=== PATIENT | female | born 1950 | race Caucasian/White ===

== ENCOUNTER 2018-01-08 06:12 | Day surgery (SDC) | payer BC ==
[~2018-01-08 06:12] MED LIST: ACETAMINOPHEN 325 MG TAB PO
[2018-01-08] MEDS: PROPARACAINE 0.5% OPHTH SOL 15ML OS (06:57)
[2018-01-08] MEDS: PHENYLEPHRINE 2.5% OPHTH SOL 2ML OS (06:57)
[2018-01-08] MEDS: OFLOXACIN 0.3 % (OCUFLOX) OPTH SOL 5ML OS (06:57)
[2018-01-08] MEDS: TROPICAMIDE 1% OPHTH SOLN 2ML OS (06:57)
[2018-01-08] MEDS ORDERED: fentaNYL 100 MCG/2 ML INJECTION (J3010) As Ordered (07:05)
[2018-01-08] MEDS ORDERED: MIDAZOLAM INJ 2 MG/2 ML VIAL (J2250) As Ordered (07:05)
[2018-01-08] MEDS: POVIDONE-IODINE 5% OPHTH PREP SOL 30ML As Ordered (07:47)
[2018-01-08] MEDS: DUOVISC (0.50ML VISCOAT/0.55ML PROVISC) OPHTH KIT As Ordered (08:02)
[2018-01-08] MEDS: BALANCED SALT IRRIGATION SOLUTION 500ML BAG (FOR OR EYE MACHINE) As Ordered (08:02)
[2018-01-08] MEDS: LIDOCAINE 0.75%/EPINEPHRINE 0.025% IN BSS 1ML SYR INTRACAMERAL (OR ONLY) As Ordered (08:02)
[2018-01-08] MEDS ORDERED: TRIMETHOBENZAMIDE 300 MG CAP PO (08:45)
== END 2018-01-08 09:05 | disposition home or self-care (01) ==
LOC: M SDC 06:12
DX: H25.12 Age-related nuclear cataract, left eye (principal); I10 Essential (primary) hypertension; E03.9 Hypothyroidism, unspecified; K44.9 Diaphragmatic hernia without obstruction or gangrene; I73.00 Raynaud's syndrome without gangrene; M12.9 Arthropathy, unspecified; M54.5 Low back pain; G35 Multiple sclerosis; N39.3 Stress incontinence (female) (male); F12.90 Cannabis use, unspecified, uncomplicated; Z88.0 Allergy status to penicillin; Z79.899 Other long term (current) drug therapy; Z79.82 Long term (current) use of aspirin; Z98.51 Tubal ligation status; Z78.0 Asymptomatic menopausal state; Z87.891 Personal history of nicotine dependence
CPT/HCPCS: 66984

== ENCOUNTER 2018-01-22 07:49 | Day surgery (SDC) | payer BC ==
[~2018-01-22 07:49] MED LIST changes: -ACETAMINOPHEN 325 MG TAB PO; +MIDAZOLAM INJ 2 MG/2 ML VIAL (J2250) As Ordered; +fentaNYL 100 MCG/2 ML INJECTION (J3010) As Ordered
[2018-01-22] MEDS: TROPICAMIDE 1% OPHTH SOLN 2ML OD (08:53)
[2018-01-22] MEDS: OFLOXACIN 0.3 % (OCUFLOX) OPTH SOL 5ML OD (08:53)
[2018-01-22] MEDS: PROPARACAINE 0.5% OPHTH SOL 15ML OD (08:53)
[2018-01-22] MEDS: PHENYLEPHRINE 2.5% OPHTH SOL 2ML OD (08:53)
[2018-01-22] MEDS: POVIDONE-IODINE 5% OPHTH PREP SOL 30ML As Ordered (09:58)
[2018-01-22] MEDS: BALANCED SALT IRRIGATION SOLUTION 500ML BAG (FOR OR EYE MACHINE) As Ordered (10:02)
[2018-01-22] MEDS: LIDOCAINE 0.75%/EPINEPHRINE 0.025% IN BSS 1ML SYR INTRACAMERAL (OR ONLY) As Ordered (10:02)
[2018-01-22] MEDS: DUOVISC (0.50ML VISCOAT/0.55ML PROVISC) OPHTH KIT As Ordered (10:06)
[2018-01-22] MEDS ORDERED: ACETAMINOPHEN 325 MG TAB As Ordered (10:19)
[2018-01-22] MEDS: ACETAMINOPHEN 325 MG TAB PO (10:25)
[2018-01-22] MEDS ORDERED: TRIMETHOBENZAMIDE 300 MG CAP PO (10:30)
== END 2018-01-22 11:28 | disposition home or self-care (01) ==
LOC: M SDC 07:49
DX: H25.11 Age-related nuclear cataract, right eye (principal); I10 Essential (primary) hypertension; G35 Multiple sclerosis; E03.9 Hypothyroidism, unspecified; K58.8 Other irritable bowel syndrome; Z87.891 Personal history of nicotine dependence; Z79.82 Long term (current) use of aspirin; Z79.899 Other long term (current) drug therapy
CPT/HCPCS: 66984

== ENCOUNTER → 2019-08-26 | Outpatient (CLI) | payer BC ==
[~2019-08-26] MED LIST changes: +ACET-841 PO; +ALKATAB12 PO; +ASPI81TA26 PO; +BUSP5TA PO; +CAND8TAB PO; +CANNABIS SL; +CBD OIL PO; +CETI10CH PO; +COPA1INJ SC; +CYAN500T8 PO; +EPIN1DRO OU; +ESTR0.1C5 EXT; +FLUO10CA15 PO; +LEVO137T2 PO; -MIDAZOLAM INJ 2 MG/2 ML VIAL (J2250) As Ordered; +MIST; +MULTCAP PO; +MULTICOLLAGEN PO; +OMEP40CA97 PO; +PROBCAP14 PO; +PROT0.1O EX; +PSEU30TA85 PO; +SALI0.6528; +SIME180C PO; +SYST1SOL OU; +TECF240C PO; +TRIA1PST TOP; +VENTAER INH; +VITAD1000T PO; -fentaNYL 100 MCG/2 ML INJECTION (J3010) As Ordered; +lutein PO; +primrose oil PO
== END ==
LOC: M LABSMTC 11:42
PROVIDERS: ATTEND Anesthesiology
DX: Z03.818 Encounter for observation for suspected exposure to other biological agents ruled out (principal); Z11.59 Encounter for screening for other viral diseases
CPT/HCPCS: C9803; U0003

== ENCOUNTER 2019-08-30 10:45 | Day surgery (SDC) | payer BC ==
[~2019-08-30] VITALS: Ht 154.9 cm; Wt 65.5 kg
[~2019-08-30 10:45] MED LIST changes: +D31000TA2 PO; -FLUO10CA15 PO; +FLUO10CA16 PO; +NS 1,000 ML IV ONE; -VITAD1000T PO
[2019-08-30] MEDS ORDERED: fentaNYL 100 MCG/2 ML INJECTION (J3010) As Ordered ONE (11:54)
[2019-08-30] MEDS ORDERED: LIDOCAINE 2% 100MG/5ML SDV (FOR ANES.) As Ordered ONE (11:56)
[2019-08-30] MEDS ORDERED: propofoL 200 MG/20 ML VIAL As Ordered ONE (11:59)
--- NOTE | 2019-08-30 12:43 | ROOR ---
Patient Name: Irma Ivory Procedure Date: 08/30/2019 12:25 PM Date of : 1950 Age: 68 Room: [facility] Gender: Female Note Status: Finalized Procedure: Upper Endoscopy + Biopsies Indications: Heartburn, Exclusion of Adrian's esophagus Providers: Castro Hooper MD Referring MD: WESTLEY WEST DO Requesting Provider: Medicines: Monitored Anesthesia Care Complications: No immediate complications. Procedure: Pre-Anesthesia Assessment: - The heart rate, respiratory rate, oxygen saturations, blood pressure, adequacy of pulmonary ventilation, and response to care were monitored throughout the procedure. The Endoscope was introduced through the mouth, and advanced to the second part of duodenum. The upper GI endoscopy was accomplished without difficulty. The patient tolerated the procedure well. Findings: The Z-line was regular and was found 35 cm from the incisors. Multiple biopsies were obtained with cold forceps for evaluation to rule out Adrian's Esophagus randomly at the gastroesophageal junction. A small hiatal hernia was present. No other significant abnormalities were identified in a careful examination of the stomach. The exam of the duodenum was otherwise normal. Impression: - Z-line regular, 35 cm from the incisors. - Small hiatal hernia. - Multiple biopsies were obtained at the gastroesophageal junction. - The examination was otherwise normal. Recommendation: - Patient has a contact number available for emergencies. The signs and symptoms of potential delayed complications were discussed with the patient. Return to normal activities tomorrow. Written discharge instructions were provided to the patient. - Resume previous diet. - Discharge patient to home. - Follow an antireflux regimen. - Continue present medications. - Await pathology results. - Telephone GI clinic for pathology results in 1 week. - Return to referring physician. - The findings and recommendations were discussed with the patient. Castro Hooper MD Castro Hooper MD 08/30/2019 12:42:44 PM Electronically signed by Castro Hooper MD Number of Addenda: 0 Note Initiated On: 08/30/2019 12:25 PM Estimated Blood Loss: Estimated blood loss: none.
[2019-08-30] MEDS ORDERED: ePHEDrine SULFATE 25 MG/5 ML(5MG/ML) SYRINGE As Ordered ONE (13:00)
--- NOTE | 2019-08-30 13:09 | ROOR ---
Patient Name: Irma Ivory Procedure Date: 08/30/2019 12:25 PM Date of : 1950 Age: 68 Room: [facility] Gender: Female Note Status: Finalized Procedure: Total Colonoscopy to Cecum Indications: Positive Cologuard test Providers: Castro Hooper MD Referring MD: WESTLEY WEST DO Requesting Provider: Medicines: Monitored Anesthesia Care Complications: No immediate complications. Procedure: Pre-Anesthesia Assessment: - The heart rate, respiratory rate, oxygen saturations, blood pressure, adequacy of pulmonary ventilation, and response to care were monitored throughout the procedure. The Colonoscope was introduced through the anus and advanced to the cecum, identified by appendiceal orifice and ileocecal valve. The colonoscopy was performed without difficulty. The patient tolerated the procedure well. The quality of the bowel preparation was excellent. Findings: The perianal and digital rectal examinations were normal. Non-bleeding internal hemorrhoids were found during retroflexion. The hemorrhoids were medium-sized and Grade II (internal hemorrhoids that prolapse but reduce spontaneously). No other significant abnormalities were identified in a careful examination of the remainder of the colon. The exam was otherwise without abnormality. Impression: - Non-bleeding internal hemorrhoids. - The examination was otherwise normal. - No specimens collected. - The exam was otherwise normal to the cecum. Recommendation: - Patient has a contact number available for emergencies. The signs and symptoms of potential delayed complications were discussed with the patient. Return to normal activities tomorrow. Written discharge instructions were provided to the patient. - Resume previous diet. - Discharge patient to home. - Continue present medications. - Repeat colonoscopy for symptoms only. - Return to referring physician. - The findings and recommendations were discussed with the patient. Castro Hooper MD Castro Hooper MD 08/30/2019 1:08:47 PM Electronically signed by Castro Hooper MD Number of Addenda: 0 Note Initiated On: 08/30/2019 12:25 PM Estimated Blood Loss: Estimated blood loss: none.
[2019-08-30 13:30] VITALS: BP 148/70
== END 2019-08-30 13:49 | disposition home or self-care (01) ==
LOC: M OPP 10:45
PROVIDERS: ATTEND Internal Medicine Gastroenterology
DX: K64.1 Second degree hemorrhoids (principal); R19.5 Other fecal abnormalities; R12 Heartburn; K44.9 Diaphragmatic hernia without obstruction or gangrene; E03.9 Hypothyroidism, unspecified; I10 Essential (primary) hypertension; G35 Multiple sclerosis; Z79.82 Long term (current) use of aspirin; Z79.899 Other long term (current) drug therapy; Z88.0 Allergy status to penicillin; Z88.8 Allergy status to other drugs, medicaments and biological substances; Z91.048 Other nonmedicinal substance allergy status
CPT/HCPCS: 43239; 45378; 88305; J3010

== ENCOUNTER → 2021-11-30 | Outpatient (CLI) | payer BC ==
[~2021-11-30] MED LIST changes: -CAND8TAB PO; +CAND8TAB8 PO; +CYAN500T14 PO; -CYAN500T8 PO; -D31000TA2 PO; -FLUO10CA16 PO; +FLUO10CA18 PO; -NS 1,000 ML IV ONE; +OMEP40CA4 PO; -OMEP40CA97 PO; +PROHANCE 279.3MG/ML 15ML VIAL ONE; -PSEU30TA85 PO; +PSEU30TA86 PO; -SIME180C PO; +SIME180C25 PO; +VITA100093 PO
== END ==
LOC: M PLAIMG 14:20
PROVIDERS: ATTEND Physician Assistant Medical
DX: G35 Multiple sclerosis (principal)

== ENCOUNTER → 2023-09-25 | Outpatient (CLI) | payer BC ==
[~2023-09-25] MED LIST changes: +ATOR40TA75; +CALC1CAP PO; +CYCL1CAP2 PO; +DILT120C89; +ESCITALOPRAM; +FLUO-290 PO; -FLUO10CA18 PO; +LIDOCAINE 1% MDV 20ML VIAL As Ordered ONE; +MAGN400C2 PO; +MIDAZOLAM INJ 2MG/2ML VIAL As Ordered ONE; +ONDA-84 PO; +PLEG15IN; +PROC10TA5 PO; -PROHANCE 279.3MG/ML 15ML VIAL ONE; -PSEU30TA86 PO; +PSEU30TA87 PO; +THERTAB52 PO; +[UNRECOGNIZED DRUG - CODE] PO; +ceFAZolin 2 GM/D5W 50 ML IV BAG As Ordered ONE; +fentaNYL 100 MCG/2 ML INJECTION As Ordered ONE
[2023-09-25 08:15] VITALS: TEMP 98
[2023-09-25] MEDS: NS 1,000 ML IV SCH (08:33)
[2023-09-25] MEDS: ceFAZolin SOD 2 GM in IV 1 EA IV ONE (08:33)
[2023-09-25 09:52] VITALS: BP 142/56; O2SAT 98
== END ==
LOC: M IRPRO 08:09
PROVIDERS: ATTEND Internal Medicine Hematology & Oncology
DX: C50.919 Malignant neoplasm of unspecified site of unspecified female breast (principal)
CPT/HCPCS: 36561; 99152; 99153; C1769; C1894; J0690; J2250; J3010

== ENCOUNTER → 2023-11-20 | Outpatient (CLI) | payer BC ==
[~2023-11-20] MED LIST changes: -ATOR40TA75; +ATOR40TA75 PO; +BUSP10TA PO; +LEXA1TAB2 PO; +LIDO30CR18 TOP; -LIDOCAINE 1% MDV 20ML VIAL As Ordered ONE; +MAGICMW SSP; -MIDAZOLAM INJ 2MG/2ML VIAL As Ordered ONE; +NYST-38 PO; -SIME180C25 PO; +SIME1CAP4 PO; -ceFAZolin 2 GM/D5W 50 ML IV BAG As Ordered ONE; -fentaNYL 100 MCG/2 ML INJECTION As Ordered ONE
== END ==
LOC: M ONCR 14:28
PROVIDERS: ATTEND General Practice
DX: C50.112 Malignant neoplasm of central portion of left female breast (principal); G35 Multiple sclerosis; Z79.899 Other long term (current) drug therapy; Z80.8 Family history of malignant neoplasm of other organs or systems; Z82.49 Family history of ischemic heart disease and other diseases of the circulatory system; Z87.891 Personal history of nicotine dependence; Z88.0 Allergy status to penicillin; Z88.1 Allergy status to other antibiotic agents; Z88.8 Allergy status to other drugs, medicaments and biological substances; Z91.048 Other nonmedicinal substance allergy status

== ENCOUNTER 2024-02-09 13:58 | Outpatient (RCR) | payer BC ==
[~2024-02-09 13:58] MED LIST changes: +EPIN0.055 OU; -EPIN1DRO OU
== END 2024-02-24 ==
LOC: M ONCR 13:58
PROVIDERS: ATTEND General Practice
DX: Z51.0 Encounter for antineoplastic radiation therapy (principal); C50.112 Malignant neoplasm of central portion of left female breast

== ENCOUNTER → 2024-03-26 | Outpatient (RCR) | payer BC ==
[~2024-03-26] MED LIST changes: +LETR2.5T2 PO
== END ==
LOC: M ONCR 02-26 11:50
PROVIDERS: ATTEND General Practice
DX: Z51.0 Encounter for antineoplastic radiation therapy (principal); C50.112 Malignant neoplasm of central portion of left female breast

== ENCOUNTER 2024-04-06 12:54 | Outpatient (RCR) | payer BC, MEDICARE | END 2024-04-23 | LOC: M ONCR 12:54 | PROVIDERS: ATTEND General Practice | DX: Z51.0 Encounter for antineoplastic radiation therapy (principal); C50.112 Malignant neoplasm of central portion of left female breast ==

== ENCOUNTER → 2024-04-19 | Outpatient (CLI) | payer BC, MEDICARE | LOC: M ONCR 14:59 | PROVIDERS: ATTEND General Practice | DX: L59.8 Other specified disorders of the skin and subcutaneous tissue related to radiation (principal); Z92.3 Personal history of irradiation; R60.0 Localized edema ==

== ENCOUNTER → 2024-10-12 | Outpatient (CLI) | payer BC ==
[~2024-10-12] MED LIST changes: +CAND4TAB7; +LEVO100T5
== END ==
LOC: M ONCR 14:27
PROVIDERS: ATTEND General Practice
DX: C50.112 Malignant neoplasm of central portion of left female breast (principal); R60.0 Localized edema; Z79.811 Long term (current) use of aromatase inhibitors; Z79.899 Other long term (current) drug therapy; Z98.890 Other specified postprocedural states; Z92.21 Personal history of antineoplastic chemotherapy; Z92.3 Personal history of irradiation; Z87.891 Personal history of nicotine dependence; Z88.0 Allergy status to penicillin; Z88.1 Allergy status to other antibiotic agents; Z91.048 Other nonmedicinal substance allergy status

== ENCOUNTER → 2024-10-18 | Outpatient (CLI) | payer BC ==
[2024-10-18] MEDS: LIDOCAINE 1% MDV 20 ML VIAL SC SCH (12:05)
[2024-10-18 12:29] VITALS: TEMP 98
[2024-10-18] MEDS: MIDAZOLAM INJ 2 MG/2 ML VIAL IV PRN (13:54)
[2024-10-18] MEDS: NS (Normal Saline) 0.9% 1,000 ML IV SCH (14:08)
[2024-10-18 14:30] VITALS: BP 166/90; O2SAT 96
[2024-10-18] MEDS: ACETAMINOPHEN 325 MG TAB PO ONE (14:53)
== END ==
LOC: M IRPRO 12:07
PROVIDERS: ATTEND General Practice
DX: C50.112 Malignant neoplasm of central portion of left female breast (principal)
CPT/HCPCS: 36590; 99152; J2250; J3010